=== PATIENT | male | born 1990 | race Caucasian/White ===

== ENCOUNTER 2018-01-27 18:22 | Emergency (ER) | payer BC ==
[2018-01-27] MEDS ORDERED: Morphine 4 MG/ML Carpuject ONE ×2 (18:31→18:32)
[2018-01-27] MEDS ORDERED: diphenhydrAMINE 50 MG/ML VIAL ONE (18:31)
[2018-01-27 18:48] LABS: #Basophils 0.2 thou/uL (0.0-0.2); #Eosinphils 0.2 thou/uL (0.0-0.7); #Lymphocytes 3.5 thou/uL (1.20-3.40); #Monocytes 0.9 thou/uL (0.11-0.59); #Neutrophils 5.9 thou/uL (1.40-6.50); %Basophils 1.4 % (0.0-1.0); %Eosinophils 1.6 % (0.0-10.0); %Lymphocytes 33.1 % (21.0-51.0); %Monocytes 8.8 % (0.0-10.0); %Neutrophils 55.1 % (42.0-75.0); Hemoglobin 15.7 g/dL (14.0-18.0); Mean Corpuscular HGB CONC 36.3 g/dL (32.0-36.0); Mean Corpuscular Hemoglobin 32.4 pg (27.0-31.0); Mean Corpuscular Volume 89.1 fl (80.0-94.0); Platelet Count 289 thou/uL (130-400); RBC Distribution Width 10.6 % (11.5-14.5); Red Blood Cell (RBC) Count 4.85 mill/uL (4.70-6.10); White Blood Cell (WBC) Count 10.6 thou/uL (4.8-10.8)
[2018-01-27 18:56] LABS: PTT 25.8 SEC (22.9-36.1); Prothrombin Time 12.8 SEC (12.0-14.7)
[2018-01-27 19:04] LABS: ALT (SGPT) 23 U/L (8-55); AST (SGOT) 21 U/L (5-34); Albumin 4.6 g/dL (3.5-5.0); Alkaline Phosphatase 84 U/L (40-150); Anion Gap 17 mmol/L (10-20); BUN (Urea Nitrogen) 13 mg/dL (8.9-20.6); Bilirubin, Total 1.2 mg/dL (0.2-1.2); Calc. Creatinine Clearance 0 mL/min (70-130); Calcium 9.7 mg/dL (7.8-10.44); Carbon Dioxide 23 mmol/L (22-29); Chloride 101 mmol/L (98-107); Estimated GFR-MDRD Greater than 90; Globulin 2.6 g/dL (2.4-3.5); Glucose 111 mg/dL (70-105); Lipase 14 U/L (8-78); Potassium 3.8 mmol/L (3.5-5.1); Protein, Total 7.2 g/dL (6.0-8.3); Sodium 137 mmol/L (136-145)
[2018-01-27 19:07] LABS: CKMB 1.7 ng/mL (0-6.6); Troponin I Less than 0.010 ng/mL (< 0.028)
[2018-01-27 20:00] LABS: Amphetamine Detected (NotDetected); Barbiturates Screen Not Detected (NotDetected); Benzodiazepine Screen Not Detected (NotDetected); Cocaine Metabolite Screen Not Detected (NotDetected); Medtox Control Line Valid? VALID (VALID); Methadone Not Detected (NotDetected); Methamphetamine Not Detected (NotDetected); Opiate Screen Detected (NotDetected); Oxycodone Screen Not Detected (NotDetected); Phencyclidine (PCP) Not Detected (NotDetected); THC/Cannabinoid Screen Detected (NotDetected); Tricyclic Screen Not Detected (NotDetected)
--- NOTE | 2018-01-27 21:29 | RAD ---
AP PORTABLE CHEST: 01/27/2018 1827 HOURS FINDINGS: Normal sized heart and clear lungs. No infiltrate or effusion is seen. No pulmonary edema. The med iastinum is unremarkable. The trachea is midline. IMPRESSION: No acute thoracic findings. POS: HOME
--- NOTE | 2018-01-27 21:31 | RAD ---
CHEST TWO VIEWS: 01/27/2018 TECHNIQUE: Follow-up PA and lateral films are taken after the initial portable study. FINDINGS: The heart is normal in size. The trachea is midline. The mediastinum appears normal. There is no v ascular congestion, edema, or pleural effusion. No major pulmonary infiltrate is seen. The bony str uctures appear normal. IMPRESSION: No significant findings. POS: HOME
== END 2018-01-27 22:05 | disposition short-term general hospital (02) ==
LOC: BURERS 18:22
DX: R07.9 Chest pain, unspecified (principal); F17.210 Nicotine dependence, cigarettes, uncomplicated; Z79.899 Other long term (current) drug therapy
CPT/HCPCS: 71045; 71046; 80053; 80306; 82553; 83690; 84484; 85025; 85610; 85730; 93005; 94760; 96374; 96375; J1200; J2270